=== PATIENT | male | born 1975 | race Caucasian/White ===

== ENCOUNTER 2018-01-11 09:56 | Emergency (ER) | payer OTHER ==
[2018-01-11 10:17] VITALS: BMI 28.6
--- NOTE | 2018-01-11 10:23 | DR.MBACK ---
HPI - Time Seen Time seen: 10:21 - PCP Primary Care Physician: OPAL - Complaint Chief Complaint Doctors Comments: Patient states he was going to get a glass of water before going to bed last night because he always has a glass of water at his bed to take him medicines the next morning and he twisted his back and went to the floor and had to catch himself on the dressor. States he has taken Mobic and pain pills but the pain in his back will not go away. States he was having back pain Saturday and tried to call his doctor to get a scan but they had already gone home. States he has been having problems with his back since he hurt his knees on 28 November 2017 when he went to the ground on both knees with severe swelling of his knees. States the pain is in the lower part of his back and goes down his leg. States the pain is 10+ of 10. He denies dysuria, hematuria, fever, chills, nausea or vomiting. States he has a problem with his nerves and takes Xanax about twice [place] for his nerves but he has not taken his xanax today. States he his heart rate is elevated because he has a problem with his nerves. He denies chest pain, SOB, nausea, vomiting, cold, cough, fever or chills. He denies any head trauma or neck pain. States he has a nodule on the lower part of his back on the left side of his spine that hurts. Chief Complaint:: PT C/O LOWER BACK PAIN RADIATING DOWN LT LEG. PT STATES HE TWISTED THE WRONG WAY LAST NIGHT AND HE FELT A POP IN HIS LOWER BACK AND HE HAS NOT BEEN ABLE TO STAND THE PAIN OR MOVE. PT HAS BEEN BEING TREATED WITH OUTPT PHYSICAL THERAPT FOR HIS KNEE INJURIES. - Reviewed Nurses Notes Review: Yes - Source History Provided: Patient - Mode of Arrival Mode of Arrival: Ambulatory - Timing Onset of Chief Complaint: 01/10/18 - Duration Duration: Constant How lon Duration: Days - Location Back Pain Location: Lower, BACK, Lumbar Radiation To: Thigh - Severity Severity: Severe - Quality Quality: Sharp - Context Onset: Twisting Circumstance: Unknown History of: None - Modifying Factors Worsened By: Movement, Twisting - Associated Signs and Symptoms Back Pain Symptoms: None Numbness: Leg Weakness: None PMH - PMH Past Medical History: Yes Past Medical History: Anxiety, Dyslipidemia, Migraines, GERD, Hypertension Past Surgical History: No - Family History History of Family Medical Conditions: Yes Family Medical History: Diabetes Mellitus, Hypertension - Social History Does any household member use tobacco: No Alcohol Use: None Do you use any recreational Drugs:: No Lives With: Family Lives Where: Home - infectious screening In the last 2 months have you had wt loss of >10#?: NO Have you had fever, night sweats or hemotysis?: No Have you traveled outside the country in the last 6 months?: No Isolation: Standard ROS - Review of Systems Constitutional: No Symptoms Reported. negative: See HPI, Chills, Diaphoresis, Fever, Malaise, Weakness, Irritable, Fatigue, Loss of Appetite, Other Eyes: No Symptoms Reported ENTM: No Symptoms Reported. negative: See HPI, Ear Pain, Ear Discharge, Pulling on Ears, Hearing Loss, Nose Pain, Nose Discharge, Epistaxis, Nose Congestion, Mouth Pain, Mouth Swelling, Loose Teeth, Drooling, Throat Pain, Throat Swelling, Ear Foreign Body Respiratoy: No Symptoms Reported Cardiovascular: No Symptoms Reported. negative: See HPI, Chest Pain, Edema, Palpitations, Syncope, Cyanosis, Skin Mottling, Other Gastrointestinal/Abdominal: No Symptoms Reported. negative: See HPI, Abdominal Pain, Constipation, Diarrhea, Nausea, Vomiting, Food Intolerance, Other Genitourinary: No Symptoms Reported Neurological: No Symptoms Reported, Anxiety, Emotional Problems, Numbness Musculoskeletal: Back Integumentary: No Symptoms Reported Hematologic/Lymphatic: No Symptoms Reported Endocrine: No Symptoms Reported Psychiatric: No Symptoms Reported PE - Vital Signs Vitals: Temperature 97.7 F Pulse Rate [Right Brachial] 109 Pulse Rate 140 Respiratory Rate 18 Blood Pressure [Right Arm] 116/75 Blood Pressure 109/68 O2 Sat by Pulse Oximetry 95 - General Limitations: No Limitations General Appearance: Alert, In Distress (moderate) - Head Head Exam: Normal Inspection, Atraumatic, Normocephalic - Eyes Eye exam: Normal Appearance, PERRL, EOMI. negative: Scleral Icterus, Conjunctival Injection, Nystagmus, Miosis, Mydrasis, Periorbital Swelling, Periorbital Tenderness, Other - ENT ENT Exam: Normal Exam, Normal Oropharynx, Normal External Ear Exam, Mucous Membranes Moist, TM's Normal Bilaterally - Chest Chest Inspection: Normal Inspection, Symmetric Chest Wall Rise. negative: Tenderness, Rash, Abscess, Other - Respiratory Respiratory Exam: Normal Lung Sounds Bilat Respiratory Exam: Bilateral Clear to Auscultation - Cardiovascular Cardiovascular Exam: Regular Rate, Normal Rhythm, Tachycardia, Normal Heart Sounds - Abdominal Exam Abdominal Exam: Normal Inspection, Normal Bowel Sounds, Soft Abdominal Tenderness: negative: RUQ, RLQ, LUQ, LLQ, Epigastrium, Suprapubic, Diffuse, Mild, Moderate, Severe, Other - Rectal Rectal Exam: Deferred - Genitourinary Exam: Male: Deferred - Extremities Extremities Exam: Full ROM, Tenderness (left knee with brace), Normal Capillary Refill. negative: Normal Inspection (left knee with brace), Calf Tenderness - Back Back Exam: Normal Inspection, Tenderness (tenderness upper back and lower back L2-S1; no erythema or swelling; small 2 cm nodule lower backon the left), Paraspinal Tenderness, Vertebral Tenderness (thoracic and lumbar midline tenderness). negative: (R) Straight Leg Raise (not due due to knee brace and history or recent injury) - Neurological Neurological Exam: Alert, Oriented X3, CN II-XII Intact, Normal Gait, Reflexes Normal - Psychiatric Psychiatric Exam: Normal Affect, Agitated, Anxious - Skin Skin Exam: Warm, Dry, Intact, Normal Color ROR - Labs Reviewed Laboratory Results Reviewed?: Yes (All labs and x-ray results reviewed and discussed with patient) Result Diagrams: 01/11/18 10:46 01/11/18 10:46 Laboratory: WBC 5.3 X10^3/uL (3.6-10.0) 01/11/18 10:46 RBC 4.55 X10^6/uL (4.7-6.0) L 01/11/18 10:46 Hgb 16.2 g/dL (13.5-18.0) 01/11/18 10:46 Hct 45.4 % (42.0-54.0) 01/11/18 10:46 MCV 99.7 fL (80.0-100.0) 01/11/18 10:46 MCH 35.7 pg (27.0-34.0) H 01/11/18 10:46 MCHC 35.8 g/dL (33.0-35.0) H 01/11/18 10:46 RDW 13.2 % (11.6-16.5) 01/11/18 10:46 Plt Count 367 X10^3/uL (150.0-450.0) 01/11/18 10:46 MPV 7.2 fL (7.4-11.0) L 01/11/18 10:46 Neut % (Auto) 56.5 % (42.0-75.0) 01/11/18 10:46 Lymph % (Auto) 32.2 % (21.0-51.0) 01/11/18 10:46 [place] % (Auto) 7.3 % (0.0-13.0) 01/11/18 10:46 Eos % (Auto) 2.1 % (0.9-2.9) 01/11/18 10:46 Baso % (Auto) 1.9 % (0.2-1.0) H 01/11/18 10:46 Neut # (Auto) 3.0 x10^3/uL (2.2-4.8) 01/11/18 10:46 Lymph # (Auto) 1.7 X10^3/uL (1.3-2.9) 01/11/18 10:46 [place] # (Auto) 0.4 x10^3/uL (0.3-0.8) 01/11/18 10:46 Eos # (Auto) 0.1 x10^3/uL (0.0-0.2) 01/11/18 10:46 Baso # (Auto) 0.1 X10^3/uL (0.0-0.1) 01/11/18 10:46 Absolute Nucleated RBC 0.1 /100WBC 01/11/18 10:46 INR Target Range - 01/11/18 10:46 INR 1.03 (0.8-1.3) 01/11/18 10:46 APTT 27.6 SECONDS (22.9-36.5) 01/11/18 10:46 PTT Comment - 01/11/18 10:46 Sodium 143 mmol/L (136-145) 01/11/18 10:46 Corrected Sodium 144 mmol/L (136-145) 01/11/18 10:46 Potassium 3.2 mmol/L (3.5-5.1) L 01/11/18 10:46 Chloride 105 mmol/L (98-107) 01/11/18 10:46 Carbon Dioxide 22.3 mmol/L (21-32) 01/11/18 10:46 BUN 9 mg/dL (7-18) 01/11/18 10:46 Creatinine 0.80 mg/dL (0.70-1.30) 01/11/18 10:46 Est GFR (MDRD) Af Amer > 60 (>60) 01/11/18 10:46 Est GFR (MDRD) Non-Af > 60 (>60) 01/11/18 10:46 Glucose 124 mg/dL (65-99) H 01/11/18 10:46 Calcium 8.9 mg/dL (8.5-10.1) 01/11/18 10:46 Corrected Calcium TNP 01/11/18 10:46 Magnesium 1.9 mg/dL (1.7-2.9) 01/11/18 10:46 Total Bilirubin 0.40 mg/dL (0.2-1.0) 01/11/18 10:46 AST 81 Units/L (15-37) H 01/11/18 10:46 ALT 111 Units/L (12-78) H 01/11/18 10:46 Alkaline Phosphatase 81 Units/L (46-116) 01/11/18 10:46 Creatine Kinase 172 Units/L (39-308) 01/11/18 10:46 CK-MB (CK-2) 2.0 ng/mL (0-4.0) 01/11/18 10:46 CK/CKMB % Calc 1.2 % (<4) 01/11/18 10:46 Troponin I < 0.02 ng/mL (0-1.5) 01/11/18 10:46 Total Protein 8.1 g/dL (6.4-8.2) 01/11/18 10:46 Albumin 4.1 g/dL (3.4-5.0) 01/11/18 10:46 Globulin 4.0 g/dL (2.5-4.5) 01/11/18 10:46 Albumin/Globulin Ratio 1.0 Ratio (1.1-2.1) L 01/11/18 10:46 Thyroxine (T4) 9.7 ug/dL (4.7-13.3) 01/11/18 10:46 TSH 3rd Generation 0.451 uIU/mL (0.358-3.74) 01/11/18 10:46 Specimen Type Random urine 01/11/18 11:15 Urine Color Yellow (YELLOW) 01/11/18 11:15 Urine Appearance Hazy (CLEAR) 01/11/18 11:15 Urine pH 5.0 (5.0 - 8.0) 01/11/18 11:15 Ur Specific [place] 1.020 (1.000-1.030) 01/11/18 11:15 Urine Protein 2+ (NEGATIVE) 01/11/18 11:15 Urine Glucose (UA) Negative (NEGATIVE) 01/11/18 11:15 Urine Ketones Negative (NEGATIVE) 01/11/18 11:15 Urine Occult Blood 1+ (NEGATIVE) 01/11/18 11:15 Urine Nitrite Negative (NEGATIVE) 01/11/18 11:15 Urine Bilirubin Negative (NEGATIVE) 01/11/18 11:15 Urine Urobilinogen 1+ (NORMAL) 01/11/18 11:15 Ur Leukocyte Esterase 1+ (NEGATIVE) 01/11/18 11:15 Urine RBC 0-2 /HPF (NONE SEEN) 01/11/18 11:15 Urine WBC 0-2 /HPF (NONE SEEN) 01/11/18 11:15 Ur Squamous Epith Cells Rare /HPF (NEGATIVE) 01/11/18 11:15 Amorphous Sediment 3+ /HPF (NEGATIVE) 01/11/18 11:15 Urine Bacteria Negative /HPF (NEGATIVE) 01/11/18 11:15 Hyaline Casts Rare /LPF (NEGATIVE) 01/11/18 11:15 Urine Mucus Moderate /HPF (NEGATIVE) 01/11/18 11:15 Ur Culture Indicated? No/not indicated 01/11/18 11:15 Urine Opiates Screen Positive (NEG=<300) 01/11/18 11:15 Urine Methadone Screen Negative (NEG=<300) 01/11/18 11:15 Ur Barbiturates Screen Positive (NEG=<200) 01/11/18 11:15 Ur Phencyclidine Scrn Negative (NEG=<25) 01/11/18 11:15 Ur Amphetamines Screen Positive (NEG=<1000) 01/11/18 11:15 U Benzodiazepines Scrn Positive (NEG=<200) 01/11/18 11:15 Urine Cocaine Screen Negative (NEG=<300) 01/11/18 11:15 U Marijuana (THC) Screen Negative (NEG=<50) 01/11/18 11:15 - XRAY XRAY Interpreted by: Radiologist (CT lumbar spine: No acute osseous abnormality. Broad based disc bulges L4 throught S1 w/foraminal narrowing. Mod to severe disc space narrowing L5-S1) - EKG Rate: 108 [place]: Normal Rhythm: NSR, ST Block: None Hypertrophy: None ST: Nonsp - Diagnosis Discharge Problem: Degenerative disc disease at L5-S1 level, Bulging of intervertebral disc between L4 and L5, Bulging lumbar disc, Hypokalemia, Tachycardia Low back pain Qualifiers: Chronicity: acute Sciatica presence: with sciatica - Discharge Plan Disposition: HOME, SELF-CARE Condition: Stable Prescriptions: Cyclobenzaprine HCl [FLEXERIL 10 MG *] 10 mg PO BID #14 tab Hydrocodone-Acet 7.5 mg/325 mg [[place] 7.5/325 mg Tab] 1 tab PO Q8H PRN #21 tab PRN Reason: Pain Methylprednisolone Dosepak 4Mg [MEDROL DOSEPAK (4 mg tab x 21)] 1 sally PO ONCE # 1 sally - Follow ups/Referrals Follow ups/Referrals: RALEIGH JOSEPH [Primary Care Provider] - 3 days LEO ALLEN [STAFF PHYSICIAN] - 3 days - Instructions Instructions: Radicular Pain, Back Pain, Adult, Herniated Disk, [id number], Potassium Content of Foods
[2018-01-11] MEDS ORDERED: TORADOL 30 MG VIAL IVP STA (10:35)
[2018-01-11] MEDS ORDERED: SOLU-Medrol 125 MG VIAL IVP ONE (10:35)
[2018-01-11] MEDS ORDERED: TORADOL 30 MG VIAL ONE (10:39)
[2018-01-11] MEDS ORDERED: SOLU-Medrol 125 MG VIAL ONE (10:39)
[2018-01-11 11:01] LABS: BASOPHILS # (AUTO) 0.1 X10^3/uL (0.0-0.1); BASOPHILS % (AUTO) 1.9 % (0.2-1.0); EOSINOPHILS # (AUTO) 0.1 x10^3/uL (0.0-0.2); EOSINOPHILS % (AUTO) 2.1 % (0.9-2.9); HEMATOCRIT 45.4 % (42.0-54.0); HEMOGLOBIN 16.2 g/dL (13.5-18.0); LYMPHOCYTES # (AUTO) 1.7 X10^3/uL (1.3-2.9); LYMPHOCYTES % (AUTO) 32.2 % (21.0-51.0); MEAN CORPUSCULAR HEMOGLOBIN 35.7 pg (27.0-34.0); MEAN CORPUSCULAR HGB CONC 35.8 g/dL (33.0-35.0); MEAN CORPUSCULAR VOLUME 99.7 fL (80.0-100.0); MEAN PLATELET VOLUME 7.2 fL (7.4-11.0); MONOCYTES # (AUTO) 0.4 x10^3/uL (0.3-0.8); MONOCYTES % (AUTO) 7.3 % (0.0-13.0); NEUTROPHILS % (AUTO) 56.5 % (42.0-75.0); PLATELET COUNT 367 X10^3/uL (150.0-450.0); RED BLOOD COUNT 4.55 X10^6/uL (4.7-6.0); RED CELL DISTRIBUTION WIDTH 13.2 % (11.6-16.5); WHITE BLOOD COUNT 5.3 X10^3/uL (3.6-10.0)
--- NOTE | 2018-01-11 11:21 | RAD ---
Examination: AP chest History: [place] a pop Findings: Normal heart size with clear lungs and pleural spaces. Impression: No acute or significant findings. Reported By:
[2018-01-11 11:25] LABS: BILIRUBIN,URINE NEGATIVE (NEGATIVE); BLOOD/HEMOGLOBIN,URINE 1+ (NEGATIVE); GLUCOSE, URINE NEGATIVE (NEGATIVE); KETONES,URINE NEGATIVE (NEGATIVE); LEUKOCYTE ESTERASE ,URINE 1+ (NEGATIVE); NITRITES,URINE NEGATIVE (NEGATIVE); PROTEIN,URINE 2+ (NEGATIVE); UROBILINOGEN,URINE 1+ (NORMAL)
[2018-01-11 11:29] LABS: BLOOD UREA NITROGEN 9 mg/dL (7-18); CALCIUM 8.9 mg/dL (8.5-10.1); CARBON DIOXIDE 22.3 mmol/L (21-32); CHLORIDE 105 mmol/L (98-107); COR NA(FOR HYPERGLY) 144 mmol/L (136-145); SODIUM 143 mmol/L (136-145); TROPONIN I < 0.02 ng/mL (0-1.5); eGFR BLACK RACES > 60 (>60); eGFR NON BLACK RACES > 60 (>60)
[2018-01-11 11:32] LABS: APPEARANCE,URINE HAZY (CLEAR); COLOR,URINE YELLOW (YELLOW)
[2018-01-11 11:34] LABS: ALANINE AMINOTRANSFERASE 111 Units/L (12-78); ALBUMIN 4.1 g/dL (3.4-5.0); ALKALINE PHOSPHATASE 81 Units/L (46-116); ASPARTATE AMINO TRANSFERASE 81 Units/L (15-37); CKMB % 1.2 % (<4); CREATINE KINASE 172 Units/L (39-308); MAGNESIUM 1.9 mg/dL (1.7-2.9); T4 (THYROXINE) 9.7 ug/dL (4.7-13.3); TOTAL PROTEIN 8.1 g/dL (6.4-8.2); TSH (3RD GENERATION) 0.451 uIU/mL (0.358-3.74)
--- NOTE | 2018-01-11 11:45 | CT ---
HISTORY: Low back pain. Study: CT lumbar spine without contrast Comparison: None. Technique: Multiple axial images of the lumbar spine were obtained from the thoracolumbar junction t o the sacrum without the administration of IV contrast. Sagittal and coronal reformats were performe d and reviewed. Dose reduction techniques including Automated Exposure Control (AEC) and adjustment of mA and kV were utilized. Findings: Anatomic alignment without acute fracture or listhesis. Moderate to severe disc space narrowing at L5 -S1. Broad-based disc bulges at L4 through S1 causing [id number] bilateral neural foraminal zachery rowing. No significant spinal canal stenosis. The vertebral body heights and disc spaces are otherwis e maintained. The visualized soft tissues are unremarkable. IMPRESSION: No acute osseous abnormality. Reported By:
[2018-01-11 11:47] LABS: AMORPHOUS SEDIMENT,UR 3+ /HPF (NEGATIVE); BACTERIA,URINE NEGATIVE /HPF (NEGATIVE); HYALINE CASTS, URINE RARE /LPF (NEGATIVE); MUCUS,URINE MODERATE /HPF (NEGATIVE); RBC,URINE 0-2 /HPF (NONE SEEN); SQUAMOUS EPITHELIAL CELL,UR RARE /HPF (NEGATIVE)
[2018-01-11] MEDS ORDERED: K-DUR TAB 20 MEQ PO STA (11:47)
[2018-01-11] MEDS ORDERED: K-DUR TAB 20 MEQ PO ONE (12:00)
[2018-01-11] MEDS ORDERED: MORPHINE SULFATE INJ 2 MG INJ IVP ONE ×2 (13:20→13:21)
[2018-01-11] MEDS ORDERED: MORPHINE SULFATE INJ 2 MG INJ ONE (13:21)
[2018-01-11 13:29] VITALS: BP 116/75
== END 2018-01-11 13:40 | disposition home or self-care (01) ==
LOC: ER 10:08
DX: M51.36 Other intervertebral disc degeneration, lumbar region (principal); M51.27 Other intervertebral disc displacement, lumbosacral region; E87.6 Hypokalemia; R00.0 Tachycardia, unspecified; M54.5 Low back pain
CPT/HCPCS: 36415; 71045; 72131; 80053; 80307; 81001; 82550; 82553; 83735; 84436; 84443; 84484; 85025; 85610; 85730; 93005; 93010; 96365; 96374; 96375; 99283; A4222; G0434; J1885; J2270; J2930

== ENCOUNTER → 2018-01-21 | Outpatient (CLI) | payer OTHER ==
[2018-01-11 13:29] VITALS: BP 116/75
--- NOTE | 2018-01-21 15:57 | MRI ---
MRI lumbar spine without contrast Indication: Lower back pain Technique: Multisequence, multiplanar MR images of the lumbar spine were obtained without IV contrast . Comparison: CT 01/11/2018 Findings: Vertebral body heights, alignment and marrow signal are normal. No acute fracture, subluxat ion or suspicious osseous lesion is identified. The conus terminates normally at T12-L1. The cauda eq uina is unremarkable. The imaged unenhanced paraspinal soft tissues are grossly unremarkable. T12-L1: Unremarkable L1-L2: Unremarkable L2-L3: Broad-based disc bulge, lateralized towards left results in mild left neural foraminal stenosi s. There is no significant canal or right foraminal narrowing. L3-L4: Mild broad-based disc bulge without significant canal or foraminal stenosis. L4-L5: Moderate broad based disc bulge and facet arthropathy results in moderate right neural foramin al narrowing. There is also severe right greater than left lateral recess narrowing. There is no sign ificant canal or left foraminal stenosis. L5-S1: There is moderate disc space narrowing, mild broad based posterior disc bulge and bilateral fa cet arthropathy, which results in mild left greater right neural foraminal narrowing without signific ant canal stenosis. Impression: Multilevel degenerative changes, resulting in varying degrees of mild-moderate neural foraminal narro wing and moderate-severe lateral recess stenosis, most significant at L4-L5, as detailed above. Reported By:
== END | disposition home or self-care (01) | DRG 552 ==
LOC: RAD 14:37
PROVIDERS: ATTEND Nurse Practitioner Family
DX: M54.17 Radiculopathy, lumbosacral region (principal); M51.26 Other intervertebral disc displacement, lumbar region; R26.2 Difficulty in walking, not elsewhere classified
CPT/HCPCS: 72148